=== PATIENT | female | born 1995 | race Caucasian/White ===

== ENCOUNTER 2020-02-01 19:46 | Emergency (ER) | payer BC, OTHER ==
[~2020-02-01] VITALS: Ht 152.4 cm; Wt 118.8 kg
[2020-02-01 22:37] VITALS: BP 152/80
== END 2020-02-01 22:38 | disposition home or self-care (01) ==
LOC: M ED 19:46
DX: F32.9 Major depressive disorder, single episode, unspecified (principal); E28.2 Polycystic ovarian syndrome

== ENCOUNTER → 2020-04-26 | Outpatient (CLI) | payer BC, OTHER ==
[2020-04-26 14:29] LABS: HEMOGLOBIN A1c 5.5 %
[2020-04-26 14:59] LABS: FOLATE 21.5 NG/ML; FREE T4 0.91 NG/DL (0.76-1.46); THYROID STIMULATING HORMONE 0.785 uIU/ML (0.358-3.740)
== END ==
LOC: M PLALAB 10:00
PROVIDERS: ATTEND Psychiatry & Neurology Neurology
DX: R73.03 Prediabetes (principal); R20.0 Anesthesia of skin

== ENCOUNTER → 2024-05-23 | Outpatient (CLI) | payer BC | LOC: M SLEEP HO 11:17 | PROVIDERS: ATTEND Student in an Organized Health Care Education/Training Program | DX: G47.33 Obstructive sleep apnea (adult) (pediatric) (principal) ==

== ENCOUNTER → 2024-06-24 | Outpatient (REF) | payer OTHER ==
[2024-06-24 14:11] LABS: HEMATOCRIT 41.6 % (36.0-47.0); HEMOGLOBIN 13.7 g/dl (12.0-15.5); MEAN CORPUSCULAR HEMOGLOBIN 29.3 pg (27.0-33.0); MEAN CORPUSCULAR HGB CONC 32.9 g/dl (32.0-36.5); MEAN CORPUSCULAR VOLUME 89.1 fl (80.0-96.0); PLATELET COUNT, AUTOMATED 371 10^3/uL (150-450); RED BLOOD COUNT 4.67 10^6/uL (4.00-5.40); WHITE BLOOD COUNT 7.8 10^3/uL (4.0-10.0)
[2024-06-24 14:34] LABS: ALBUMIN 3.6 G/DL (3.2-5.2); ALKALINE PHOSPHATASE 81 U/L (35-104); ALT/SGPT 39 U/L (7.0-40); AST/SGOT 17 U/L (<34); BILIRUBIN,TOTAL 0.4 MG/DL (0.3-1.2); BLOOD UREA NITROGEN 13 MG/DL (9-23); CALCIUM LEVEL 9.5 MG/DL (8.5-10.1); CARBON DIOXIDE LEVEL 30 MMOL/L (20-31); CHLORIDE LEVEL 102 MMOL/L (98-107); CHOLESTEROL LEVEL 157 MG/DL (<200); CHOLESTEROL RISK RATIO 3.52 (<5); CREATININE FOR GFR 0.74 MG/DL (0.55-1.30); GLOMERULAR FILTRATION RATE > 90.0 (>60); GLUCOSE, FASTING 93 MG/DL (60-100); HDL CHOLESTEROL 44.5 MG/DL (>40); LDL CHOLESTEROL 96.5 MG/DL (<100); NON-HDL-C 112.5 MG/DL; POTASSIUM SERUM 4.8 MMOL/L (3.5-5.1); SODIUM LEVEL 140 MMOL/L (136-145); TOTAL PROTEIN 7.1 G/DL (5.7-8.2); TRIGLYCERIDES LEVEL 80 MG/DL (<150)
[2024-06-24 14:35] LABS: THYROID STIMULATING HORMONE 1.923 uIU/ML (0.55-4.78)
[2024-06-24 14:36] LABS: HEMOGLOBIN A1c 5.2 % (4.0-6.0); TOTAL 25(OH) VITAMIN D 18.5 NG/ML (20.0-100.0)
== END ==
LOC: M LAB REF 12:12
PROVIDERS: ATTEND Student in an Organized Health Care Education/Training Program
DX: E28.2 Polycystic ovarian syndrome (principal); Z68.43 Body mass index [BMI] 50.0-59.9, adult